=== PATIENT | female | born 1985 ===

== ENCOUNTER 2017-09-15 14:22 | Emergency (ER) | payer OTHER ==
[2017-09-15 14:43] VITALS: BMI 26.4
[2017-09-15 15:10] VITALS: BP 130/85; PULSE 112; RESP 20; TEMP 99.4; O2SAT 100
--- NOTE | 2017-09-15 16:37 | C.PDOC ---
History Of Present Illness 32-year-old female, presents to the emergency department with complaints of left ear pain ongoing x5 days. patient denies any nausea/vomiting, diarrhea, fevers, chills, chest pain, cough or shortness of breath. No other complaints at this time. Chief Complaint (Nursing): ENT Problem History Per: Patient History/Exam Limitations: None Onset/Duration Of Symptoms: Days (5) Past Medical History Reviewed: Historical Data, Nursing Documentation, Vital Signs Vital Signs: Last Vital Signs Temp 99.4 F 09/15/17 15:09 Pulse 112 H 09/15/17 15:09 Resp 20 09/15/17 15:09 BP 130/85 09/15/17 15:09 Pulse Ox 100 09/15/17 16:53 Family History: States: No Known Family Hx - Social History Hx Alcohol Use: No Hx Substance Use: No - Immunization History Hx Tetanus Toxoid Vaccination: No Hx Influenza Vaccination: No Hx Pneumococcal Vaccination: No Review Of Systems Constitutional: Negative for: Fever ENT: Positive for: Ear Pain (L). Negative for: Nose Congestion, Throat Pain Respiratory: Negative for: Cough, Shortness of Breath Gastrointestinal: Negative for: Nausea, Vomiting Musculoskeletal: Negative for: Neck Pain Physical Exam - Physical Exam Appears: Non-toxic, No Acute Distress Skin: Warm, Dry, No Rash Head: Normacephalic Eye(s): bilateral: PERRL Ear(s): Left: TM Dull, Right: Normal Nose: No Flaring, No Discharge Oral Mucosa: Moist Neck: Normal ROM, Supple Cardiovascular: Rhythm Regular, No Murmur Respiratory: Normal Breath Sounds, No Accessory Muscle Use Extremity: Normal ROM Neurological/Psych: Oriented x3, Normal Speech ED Course And Treatment O2 Sat by Pulse Oximetry: 100 (RA) Pulse Ox Interpretation: Normal Disposition - Disposition Referrals: [facility] [Outside] [facility] [Outside] Disposition: HOME/ ROUTINE Disposition Time: 15:50 Condition: GOOD Additional Instructions: Thank you for letting us take care of you today. The emergency medical care you received today was directed at your acute symptoms. If you were prescribed any medication, please fill it and take as directed. It may take several days for your symptoms to resolve. Return to the Emergency Department if your symptoms worsen, do not improve, or if you have any other problems. Please contact your doctor or call one of the physicians/clinics you have been referred to that are listed on the Patient Visit Information form that is included in your discharge packet. Bring any paperwork you were given at discharge with you along with any medications you are taking to your follow up visit. Our treatment cannot replace ongoing medical care by a primary care provider (PCP) outside of the emergency department. Thank you for allowing the [facility] team to be part of your care today. Follow up with the clinic in 3-4 days for re-evaluation and further management. Rosa por dejarnos atenderlo hoy. La atencin mdica de emergencia que recibi hoy estaba dirigida a nell sntomas agudos. Si le prescribieron algn medicamento, llnelo y tome segn las indicaciones. Nell sntomas pueden tardar varios broussard en resolverse. Regrese al Departamento de Emergencia si nell s ntomas empeoran, no mejoran o si tiene algn otro problema. Comunquese con crespo mdico o llame a abdiel de los mdicos / clnicas a los que schaefer sido referido que figura en el formulario de Informacin de visita del paciente que se incluye en crespo paquete de julian. Traiga todos los documentos que recibi al momento del julian junto con los medicamentos que est tomando en crespo visita de seguimiento. Nuestro tratamiento no puede reemplazar la atencin mdica en curso por parte de un proveedor de atencin primaria (PCP) fuera del departamento de emergencias. Rosa por permitir que el equipo de [facility] sea parte de crespo cuidado hoy. Lior un seguimiento con la clnica en 3-4 broussard para clovis nueva evaluacin y ms administracin. Prescriptions: Amoxicillin/Clavulanate [Augmentin 875 MG-125 MG] 1 tab PO BID #14 tab Ibuprofen [Motrin] 600 mg PO Q6 PRN #20 tab PRN Reason: Pain, Moderate (4-7) Instructions: Otitis Media (ED) Forms: Gen Discharge Inst Uzbek Print Language: ICELANDIC - Clinical Impression Clinical Impression: Otitis media - Scribe Statement The provider has reviewed the documentation as recorded by the Scribe (Giorgi Crews) All medical record entries made by the Scribe were at my direction and personally dictated by me. I have reviewed the chart and agree that the record accurately reflects my personal performance of the history, physical exam, medical decision making, and the department course for this patient. I have also personally directed, reviewed, and agree with the discharge instructions and disposition.
== END 2017-09-15 16:05 | disposition home or self-care (01) ==
LOC: C.ER 14:22
DX: H66.90 Otitis media, unspecified, unspecified ear (principal)

== ENCOUNTER 2018-07-12 08:29 | Emergency (ER) | payer OTHER ==
[2018-07-12 08:29] VITALS: BMI 26.4
[2018-07-12 08:37] VITALS: TEMP 97.6
[2018-07-12 09:18] LABS: HCG,QUALITATIVE URINE POSITIVE (NEGATIVE)
[2018-07-12 09:27] LABS: SQUAMOUS EPITHIAL < 1 /hpf (0-5); URINE BILIRUBIN NEGATIVE (NEGATIVE); URINE BLOOD NEGATIVE (NEGATIVE); URINE CLARITY Clear (Clear); URINE COLOR Yellow (YELLOW); URINE GLUCOSE (UA) NORMAL (Normal); URINE LEUKOCYTE ESTERASE NEG Leu/uL (Negative); URINE PROTEIN NEGATIVE (NEGATIVE); URINE UROBILINOGEN NORMAL mg/dL (0.2-1.0)
--- NOTE | 2018-07-12 10:08 | C.PDOC ---
History Of Present Illness 32 y/o A1 currently 8 week female presents to ED with c/o vaginal spotting this morning associated with lower abdomen discomfort. Patient states she has not seen OBGYN or had ultrasound for current . Denies fever, chills, nausea, vomiting, diarrhea, back pain, dysuria or any other complaints at this time. LMP 05/18/18 Time Seen by Provider: 07/12/18 08:40 Chief Complaint (Nursing): Female Genitourinary History Per: Patient History/Exam Limitations: no limitations Onset/Duration Of Symptoms: Days Current Symptoms Are (Timing): Still Present Past Medical History Reviewed: Historical Data, Nursing Documentation, Vital Signs Vital Signs: Last Vital Signs Temp 97.6 F 07/12/18 08:31 Pulse 93 H 07/12/18 08:31 Resp 18 07/12/18 08:31 BP 125/77 07/12/18 08:31 Pulse Ox 100 07/12/18 08:31 - Medical History PMH: No Chronic Diseases Surgical History: No Surg Hx Family History: States: No Known Family Hx - Social History Hx Alcohol Use: No Hx Substance Use: No - Immunization History Hx Tetanus Toxoid Vaccination: No Hx Influenza Vaccination: No Hx Pneumococcal Vaccination: No Review Of Systems Except As Marked, All Systems Reviewed And Found Negative. Constitutional: Negative for: Fever, Chills Eyes: Negative for: Vision Change Cardiovascular: Negative for: Chest Pain, Palpitations, Light Headedness Respiratory: Negative for: Cough, Shortness of Breath Gastrointestinal: Positive for: Abdominal Pain. Negative for: Nausea, Vomiting Genitourinary: Positive for: Vaginal Bleeding. Negative for: Dysuria, Vaginal Discharge, Pelvic Pain Musculoskeletal: Negative for: Neck Pain, Back Pain Neurological: Negative for: Weakness, Numbness, Headache, Dizziness Physical Exam - Physical Exam Appears: Well, Non-toxic, No Acute Distress Skin: Normal Color, Warm, Dry, No Rash Head: Atraumatic, Normacephalic Eye(s): bilateral: Normal Inspection, PERRL, EOMI Nose: Normal Oral Mucosa: Moist Throat: Normal, No Erythema, Exudate Neck: Normal ROM, Supple Cardiovascular: Rhythm Regular Respiratory: Normal Breath Sounds, No Rales, No Rhonchi, No Wheezing Gastrointestinal/Abdominal: Normal Exam, Bowel Sounds (normoactive), Soft, No Tenderness, No Guarding, No Rebound Back: No CVA Tenderness Pelvic: Normal External Exam, Normal Bimanual Exam, No Vaginal Bleeding, Vaginal Discharge (mild, white), No Cervical Motion Tenderness, No Cervix Open, No Adnexal Tenderness, No Mass, No Enlarged Uterus, Tender Uterus Extremity: Normal ROM Extremity: Bilateral: Atraumatic, No Pedal Edema, Normal Color And Temperature, Normal ROM Pulses: Left Radial: Normal, Right Radial: Normal Neurological/Psych: Oriented x3, Normal Speech, Normal Cognition, Normal Motor, Normal Sensation Gait: Steady ED Course And Treatment - Laboratory Results Result Diagrams: 07/12/18 10:16 07/12/18 10:16 Lab Interpretation: Normal Urine POC: Positive O2 Sat by Pulse Oximetry: 100 (RA) Pulse Ox Interpretation: Normal - CT Scan/US No standard instances Other Rad Studies (CT/US): Read By Radiologist, Radiology Report Reviewed CT/US Interpretation: Impression: Single live intrauterine gestation with mean gestational age of 7 weeks 6 days. Estimated date of delivery 02/22/2019. Medical Decision Making Medical Decision Making: Initial Plan: * OB transvaginal US * CBC, CMP * Hcg * Type and Screen Blood Type O +, no indication for rhogam at this time. CBC: wnl CMP: wnl Small amount of white discharge noted on speculum exam. Will test for GC/Chlamydia. Pt has no concern for STI, states she will return for treatment if necessary. Ultrasound shows confirmed live IUP. Will recommend outpatient OBGYN followup. Plan of care discussed with patient, and strict instructions given regarding prescriptions, importance of follow up, and signs to return to Emergency Department, to include worsening abdominal pain, vaginal bleeding, chest pain, SOB, or any other new/worsening symptoms. Patient verbalizes understanding of discussion. Patient A&Ox3, ambulating with steady gait, stable for discharge home. Disposition - Disposition [facility]] Sondra Horowitz MD [Staff Provider] - Disposition: HOME/ ROUTINE Disposition Time: 12:30 Condition: GOOD Additional Instructions: Followup with OBGYN within 2 days Followup with primary doctor within 2 days Return to ER for any new/worsening symptoms Instructions: Bleeding With (DC) Forms: Gen Discharge Inst Senegalese, [employer] (Senegalese) Print Language: POLISH - Clinical Impression Clinical Impression: Vaginal bleeding affecting early - PA / VISITOR SERVICES ASSOCIATE / Resident Statement MD/DO has reviewed & agrees with the documentation as recorded. - Scribe Statement The provider has reviewed the documentation as recorded by the Alexeyibanatoly Cantu All medical record entries made by the Fuad were at my direction and personally dictated by me. I have reviewed the chart and agree that the record accurately reflects my personal performance of the history, physical exam, medical decision making, and the department course for this patient. I have also personally directed, reviewed, and agree with the discharge instructions and dis position.
[2018-07-12 10:28] LABS: BASO # 0.1 K/uL (0.0-0.2); BASO % 0.7 % (0.0-2.0); EOS # 0.8 K/uL (0.0-0.7); EOS % 8.8 % (0.0-4.0); HEMOGLOBIN 12.2 g/dL (11.0-16.0); LYMPH # 1.2 K/uL (1.0-4.3); LYMPH % 12.9 % (20.0-40.0); MEAN CELL VOLUME 94.1 fL (81.0-99.0); MEAN CORPUSCULAR HEMOGLOBIN 32.4 pg (27.0-31.0); MEAN CORPUSCULAR HGB CONC 34.4 g/dL (33.0-37.0); MEAN PLATELET VOLUME 8.5 fL (7.2-11.7); MONO # 0.6 K/uL (0.0-0.8); MONO % 6.1 % (0.0-10.0); NEUT # 6.6 K/uL (1.8-7.0); NEUT % 71.5 % (50.0-75.0); RBC 3.76 Mil/uL (3.80-5.20); RED CELL DISTRIBUTION WIDTH 12.7 % (11.5-14.5); WHITE BLOOD COUNT 9.2 K/uL (4.8-10.8)
[2018-07-12 11:29] LABS: ALB/GLOB RATIO 1.4 (1.0-2.1); ALBUMIN 4.1 g/dL (3.5-5.0); ALT/SGPT 16 U/L (9-52); AST/SGOT 18 U/L (14-36); BLOOD UREA NITROGEN 10 mg/dL (7-17); CALCIUM 8.9 mg/dl (8.6-10.4); GFR NON-AFRICAN AMERICAN > 60
[2018-07-12 11:37] VITALS: BP 112/69; PULSE 79; RESP 16
--- NOTE | 2018-07-12 12:18 | US ---
Date of service: 07/12/2018 PROCEDURE: OB Pelvic Ultrasound HISTORY: OB, vaginal bleeding, LMP 05/26/18 LMP: 05/26/2018 COMPARISON: None available. FINDINGS: UTERUS: Gestational sac: Single intrauterine gestational sac. Gestational sac diameter measures 3.08 cm corresponding to 8 weeks and 0 day of gestational age. pole measures 1.37 cm corresponding to 7 weeks and 4 days of gestational age. Yolk sac is visualized. Heart rate: 163 bpm. age (Ultrasound estimated): 7 weeks and 6 days Ada-gestational hemorrhage: None. Date of delivery (Ultrasound estimated) : 02/22/2019 Uterus measures 13.1 x 5.8 x 7.8 cm. Anteverted, normal in size and appearance. CERVIX: Measures 4.6 cm. Long and closed. No cervical abnormality seen. RIGHT OVARY: Measures 5.1 x 1.7 x 4.4 cm. No mass lesion. Normal flow. There is a 1.6 cm simple cyst. LEFT OVARY: Measures 3.5 x 2.5 x 3.5 cm. No solid mass. Normal flow. FREE FLUID: None. OTHER FINDINGS: None. IMPRESSION: Single live intrauterine gestation with mean gestational age of 7 weeks and 6 days. The estimated date of delivery by ultrasound is 02/22/2019.
[2018-07-13 00:04] VITALS: O2SAT 100
== END 2018-07-12 12:45 | disposition home or self-care (01) ==
LOC: C.ER 08:29
DX: O20.9 Hemorrhage in early pregnancy, unspecified (principal); Z3A.08 8 weeks gestation of pregnancy